=== PATIENT | female | born 1960 | race Caucasian/White ===

== ENCOUNTER → 2022-04-28 | Outpatient (CLI) | payer OTHER | LOC: WCC 09:46 | PROVIDERS: ATTEND Internal Medicine Infectious Disease | DX: T81.89XS Other complications of procedures, not elsewhere classified, sequela (principal); Y83.8 Other surgical procedures as the cause of abnormal reaction of the patient, or of later complication, without mention of misadventure at the time of the procedure; I10 Essential (primary) hypertension; I48.91 Unspecified atrial fibrillation; M13.80 Other specified arthritis, unspecified site ==

== ENCOUNTER → 2022-05-05 | Outpatient (CLI) | payer OTHER | LOC: WCC 10:41 | PROVIDERS: ATTEND Internal Medicine Infectious Disease | DX: T81.89XS Other complications of procedures, not elsewhere classified, sequela (principal); T81.89XA Other complications of procedures, not elsewhere classified, initial encounter; Y83.8 Other surgical procedures as the cause of abnormal reaction of the patient, or of later complication, without mention of misadventure at the time of the procedure; I10 Essential (primary) hypertension; I48.91 Unspecified atrial fibrillation; M13.80 Other specified arthritis, unspecified site ==

== ENCOUNTER → 2022-05-08 | Outpatient (CLI) | payer OTHER | LOC: WCC 08:11 | PROVIDERS: ATTEND Internal Medicine Infectious Disease | DX: T81.89XS Other complications of procedures, not elsewhere classified, sequela (principal); Y83.8 Other surgical procedures as the cause of abnormal reaction of the patient, or of later complication, without mention of misadventure at the time of the procedure; T81.89XA Other complications of procedures, not elsewhere classified, initial encounter; I10 Essential (primary) hypertension; I48.91 Unspecified atrial fibrillation; M13.80 Other specified arthritis, unspecified site ==

== ENCOUNTER → 2022-05-10 | Outpatient (CLI) | payer OTHER | LOC: WCC 03:30 | PROVIDERS: ATTEND Internal Medicine Infectious Disease | DX: T81.89XS Other complications of procedures, not elsewhere classified, sequela (principal); Y83.8 Other surgical procedures as the cause of abnormal reaction of the patient, or of later complication, without mention of misadventure at the time of the procedure; I10 Essential (primary) hypertension; I48.91 Unspecified atrial fibrillation; M13.80 Other specified arthritis, unspecified site ==

== ENCOUNTER → 2022-05-12 | Outpatient (CLI) | payer OTHER | LOC: WCC 11:36 | PROVIDERS: ATTEND Internal Medicine Infectious Disease | DX: T81.89XS Other complications of procedures, not elsewhere classified, sequela (principal); Y83.8 Other surgical procedures as the cause of abnormal reaction of the patient, or of later complication, without mention of misadventure at the time of the procedure; I10 Essential (primary) hypertension; I48.91 Unspecified atrial fibrillation; M13.80 Other specified arthritis, unspecified site ==

== ENCOUNTER → 2022-05-16 | Outpatient (CLI) | payer OTHER | LOC: WCC 09:10 | PROVIDERS: ATTEND Internal Medicine Infectious Disease | DX: T81.89XA Other complications of procedures, not elsewhere classified, initial encounter (principal); Y83.8 Other surgical procedures as the cause of abnormal reaction of the patient, or of later complication, without mention of misadventure at the time of the procedure; I10 Essential (primary) hypertension; I48.91 Unspecified atrial fibrillation; M13.80 Other specified arthritis, unspecified site ==

== ENCOUNTER → 2022-05-19 | Outpatient (CLI) | payer OTHER | LOC: WCC 11:58 | PROVIDERS: ATTEND Internal Medicine Infectious Disease | DX: T81.89XS Other complications of procedures, not elsewhere classified, sequela (principal); Y83.8 Other surgical procedures as the cause of abnormal reaction of the patient, or of later complication, without mention of misadventure at the time of the procedure; I10 Essential (primary) hypertension; I48.91 Unspecified atrial fibrillation; M13.80 Other specified arthritis, unspecified site ==

== ENCOUNTER → 2022-05-23 | Outpatient (CLI) | payer OTHER | LOC: WCC 14:17 | PROVIDERS: ATTEND Internal Medicine Infectious Disease | DX: T81.89XS Other complications of procedures, not elsewhere classified, sequela (principal); Y83.8 Other surgical procedures as the cause of abnormal reaction of the patient, or of later complication, without mention of misadventure at the time of the procedure; I10 Essential (primary) hypertension; I48.91 Unspecified atrial fibrillation; M13.80 Other specified arthritis, unspecified site ==

== ENCOUNTER → 2022-05-26 | Outpatient (CLI) | payer OTHER | LOC: WCC 12:36 | PROVIDERS: ATTEND Internal Medicine Infectious Disease | DX: T81.89XS Other complications of procedures, not elsewhere classified, sequela (principal); Y83.8 Other surgical procedures as the cause of abnormal reaction of the patient, or of later complication, without mention of misadventure at the time of the procedure; I10 Essential (primary) hypertension; I48.91 Unspecified atrial fibrillation; M13.80 Other specified arthritis, unspecified site ==

== ENCOUNTER → 2022-05-30 | Outpatient (CLI) | payer OTHER | LOC: WCC 15:10 | PROVIDERS: ATTEND Internal Medicine Infectious Disease | DX: T81.89XS Other complications of procedures, not elsewhere classified, sequela (principal); Y83.8 Other surgical procedures as the cause of abnormal reaction of the patient, or of later complication, without mention of misadventure at the time of the procedure; I10 Essential (primary) hypertension; I48.91 Unspecified atrial fibrillation; M13.80 Other specified arthritis, unspecified site ==

== ENCOUNTER → 2022-06-02 | Outpatient (CLI) | payer OTHER | LOC: WCC 15:08 | PROVIDERS: ATTEND Internal Medicine Infectious Disease | DX: T81.89XS Other complications of procedures, not elsewhere classified, sequela (principal); Y83.8 Other surgical procedures as the cause of abnormal reaction of the patient, or of later complication, without mention of misadventure at the time of the procedure; I10 Essential (primary) hypertension; I48.91 Unspecified atrial fibrillation; M13.80 Other specified arthritis, unspecified site ==

== ENCOUNTER → 2022-06-06 | Outpatient (CLI) | payer OTHER | LOC: WCC 13:54 | PROVIDERS: ATTEND Internal Medicine Infectious Disease | DX: T81.89XS Other complications of procedures, not elsewhere classified, sequela (principal); Y83.8 Other surgical procedures as the cause of abnormal reaction of the patient, or of later complication, without mention of misadventure at the time of the procedure; I10 Essential (primary) hypertension; I48.91 Unspecified atrial fibrillation; M13.80 Other specified arthritis, unspecified site ==

== ENCOUNTER → 2022-06-09 | Outpatient (CLI) | payer OTHER | LOC: WCC 09:51 | PROVIDERS: ATTEND Internal Medicine Infectious Disease | DX: T81.89XS Other complications of procedures, not elsewhere classified, sequela (principal); Y83.8 Other surgical procedures as the cause of abnormal reaction of the patient, or of later complication, without mention of misadventure at the time of the procedure; I10 Essential (primary) hypertension; I48.91 Unspecified atrial fibrillation; M13.80 Other specified arthritis, unspecified site ==

== ENCOUNTER → 2022-06-13 | Outpatient (CLI) | payer OTHER | LOC: WCC 13:27 | PROVIDERS: ATTEND Internal Medicine Infectious Disease | DX: T81.89XS Other complications of procedures, not elsewhere classified, sequela (principal); Y83.8 Other surgical procedures as the cause of abnormal reaction of the patient, or of later complication, without mention of misadventure at the time of the procedure; I10 Essential (primary) hypertension; I48.91 Unspecified atrial fibrillation; M13.80 Other specified arthritis, unspecified site ==

== ENCOUNTER → 2022-06-16 | Outpatient (CLI) | payer OTHER | LOC: WCC 14:31 | PROVIDERS: ATTEND Internal Medicine Infectious Disease | DX: T81.89XS Other complications of procedures, not elsewhere classified, sequela (principal); Y83.8 Other surgical procedures as the cause of abnormal reaction of the patient, or of later complication, without mention of misadventure at the time of the procedure; I10 Essential (primary) hypertension; I48.91 Unspecified atrial fibrillation; M13.80 Other specified arthritis, unspecified site ==

== ENCOUNTER → 2022-06-20 | Outpatient (CLI) | payer OTHER | LOC: WCC 12:01 | PROVIDERS: ATTEND Internal Medicine Infectious Disease | DX: T81.89XS Other complications of procedures, not elsewhere classified, sequela (principal); Y83.8 Other surgical procedures as the cause of abnormal reaction of the patient, or of later complication, without mention of misadventure at the time of the procedure; I10 Essential (primary) hypertension; I48.91 Unspecified atrial fibrillation; M13.80 Other specified arthritis, unspecified site ==

== ENCOUNTER → 2022-06-23 | Outpatient (CLI) | payer OTHER | LOC: WCC 15:00 | PROVIDERS: ATTEND Internal Medicine Infectious Disease | DX: T81.89XS Other complications of procedures, not elsewhere classified, sequela (principal); Y83.8 Other surgical procedures as the cause of abnormal reaction of the patient, or of later complication, without mention of misadventure at the time of the procedure; I10 Essential (primary) hypertension; I48.91 Unspecified atrial fibrillation; M13.80 Other specified arthritis, unspecified site ==